=== PATIENT | female | born 1960 | race Caucasian/White ===

== ENCOUNTER 2023-12-25 18:01 | Emergency (ER) | payer BC ==
[~2023-12-25] VITALS: Ht 157.5 cm; Wt 64.0 kg
[2023-12-25 18:05] VITALS: O2SAT 100
[2023-12-25 18:35] VITALS: TEMP 36.61404
[2023-12-25] MEDS: SODIUM CHLORIDE 0.9% 1,000 ML IV ONE ×2 (18:49→19:41)
[2023-12-25 18:58] LABS: BASOPHILS % 1.2 % (0.0-2.0); EOSINOPHILS % 4.6 % (0.0-5.0); HEMATOCRIT. 41.5 % (36.0-48.0); MEAN CORPUSCULAR HEMOGLOBIN 32.8 pg (28.0-32.0); MEAN CORPUSCULAR HGB CONC 33.8 g/dL (31.0-37.0); MEAN CORPUSCULAR VOLUME 96.8 fL (81.0-99.0); MEAN PLATELET VOLUME 8.6 fl (7.4-10.4); MONOCYTES % 5.9 % (2.0-8.0); NEUTROPHILS % 55.3 % (40.0-76.0); PLATELET 301 x1000/uL (130-400); RED BLOOD CELL COUNT 4.28 mill/uL (4.2-5.4); RED CELL DISTRIBUTION WIDTH 13.6 % (11.6-14.6); WHITE BLOOD COUNT 7.5 x1000/uL (4.5-11.0)
[2023-12-25 19:06] LABS: CHLORIDE 112 mEq/L (98-107); POTASSIUM 3.3 mEq/L (3.5-5.1); SODIUM 149 mEq/L (136-145)
[2023-12-25 19:07] LABS: CARBON DIOXIDE 26 mEq/L (21-32)
[2023-12-25 19:12] LABS: GLUCOSE 87 mg/dL (70-105); UREA NITROGEN BLOOD 15 mg/dL (9-23)
[2023-12-25 19:13] LABS: ETHANOL BLOOD 300 mg/dL (<10); TROPONIN I HIGH SENSITIVITY 7 ng/L (3.0-34)
[2023-12-25 19:14] LABS: ALANINE AMINOTRANSFERASE 14 IU/L (10-49); ALBUMIN 4.7 g/dL (3.2-4.8); ASPARTATE AMINOTRANSFERASE 27 IU/L (<34); BILIRUBIN TOTAL 0.4 mg/dL (0.1-1.0)
[2023-12-25 19:15] LABS: PROTEIN TOTAL 7.3 g/dL (6.0-8.3)
[2023-12-25 19:19] LABS: BILIRUBIN DIRECT < 0.1 mg/dL (<=3.0)
[2023-12-25] MEDS: ONDANSETRON HCL 4MG/2ML INJ IV STA (19:36)
[2023-12-25 20:40] LABS: *AMPHETAMINES SCREEN URINE NEGATIVE (NEGATIVE); *BARBITURATES SCREEN URINE NEGATIVE (NEGATIVE); *BENZODIAZEPINES SCREEN URINE NEGATIVE (NEGATIVE); *COCAINE SCREEN URINE NEGATIVE (NEGATIVE); CANNABINOID URINE SCREEN NEGATIVE (NEGATIVE); ECSTASY MDMA SCREEN URINE NEGATIVE (NEGATIVE); METHADONE URINE SCREEN NEGATIVE (NEGATIVE); OPIATES URINE SCREEN NEGATIVE (NEGATIVE); PHENCYCLIDINE URINE SCREEN NEGATIVE (NEGATIVE)
[2023-12-26 00:07] VITALS: BP 121/75; PULSE 94; RESP 16; O2SAT 99
== END 2023-12-26 00:10 | disposition home or self-care (01) ==
LOC: ER 18:01
DX: F10.129 Alcohol abuse with intoxication, unspecified (principal); Y90.8 Blood alcohol level of 240 mg/100 ml or more
CPT/HCPCS: 80076; 80305; 80048; 80320; 85025; 84484; 36415; 93005; 96361; 96374; 99284; J2405; J7030; Z7610; G0480